=== PATIENT | female | born 1955 | race Two or more races ===

== ENCOUNTER 2021-11-27 09:13 | Emergency (ER) | payer BC ==
[~2021-11-27] VITALS: Ht 152.4 cm; Wt 66.7 kg
[2021-11-27] MEDS ORDERED: PROAIR RESPICL90 MCG IH (09:34)
[2021-11-27] MEDS ORDERED: SYMBICORT 16010.2 GM IH (09:35)
[2021-11-27] MEDS ORDERED: LIPITOR20 MG PO (09:35)
== END 2021-11-27 14:09 | disposition home or self-care (01) ==
LOC: ER 09:13
DX: R07.89 Other chest pain (principal)

== ENCOUNTER 2021-12-22 12:26 | Emergency (ER) | payer BC ==
[~2021-12-22] VITALS: Ht 154.9 cm; Wt 66.7 kg
[~2021-12-22 12:26] MED LIST: LIPITOR20 MG PO; PROAIR RESPICL90 MCG IH; SYMBICORT 16010.2 GM IH
[2021-12-22] MEDS ORDERED: PAXLOVID 150-11 EACH PO (14:03)
== END 2021-12-22 17:57 | disposition home or self-care (01) ==
LOC: ER 12:26
DX: U07.1 COVID-19 (principal); J45.909 Unspecified asthma, uncomplicated

== ENCOUNTER 2022-05-27 13:01 | Outpatient (CLI) | payer OTHER ==
[~2022-05-27 13:01] MED LIST changes: +PAXLOVID 150-11 EACH PO; +PEPCID40 MG PO; +PRILOSEC OTC20 MG PO; +ZOFRAN8 MG PO
== END 2022-05-27 13:30 | disposition home or self-care (01) ==
LOC: LAB 13:01
PROVIDERS: ATTEND Radiology Diagnostic Radiology
DX: R91.1 Solitary pulmonary nodule (principal)